=== PATIENT | female | born 1995 | race Caucasian/White ===

== ENCOUNTER 2023-05-24 07:03 | Emergency (ER) | payer OTHER ==
[2023-05-24] MEDS ORDERED: ACETAMINOPHEN TAB 325 MG TAB PO STA (07:32)
[2023-05-24] MEDS ORDERED: IBUPROFEN 600 MG TAB PO STA (07:32)
[2023-05-24 07:51] VITALS: BP 133/78; TEMP 103.1
--- NOTE | 2023-05-24 08:39 | XR ---
EXAMINATION TYPE: XR chest 2V DATE OF EXAM: 05/24/2023 COMPARISON: None HISTORY: 27-year-old female with fever, cough, congestion TECHNIQUE: PA and lateral views FINDINGS: The cardiomediastinal silhouette, aorta, and pulmonary vasculature are within normal limits. Slightly low lung volumes with crowded vascular markings. Otherwise, lungs and pleural spaces are clear. IMPRESSION: Some hypoventilatory changes. Otherwise, no acute cardiopulmonary process.
[2023-05-24 08:49] VITALS: RESP 20
--- NOTE | 2023-05-24 08:58 | ED ---
General Adult HPI - General Chief complaint: Fever Stated complaint: fever,SOB Time Seen by Provider: 05/24/23 07:32 Source: patient, RN notes reviewed Mode of arrival: ambulatory Limitations: no limitations - History of Present Illness Initial comments: 27-year-old female with medical history significant for asthma presents the emergency department with a chief complaint of fever. Patient reports fever that started last night at approximately 8 PM. She is also complaining of generalized body aches, headache and cough. She does not take any Tylenol or Motrin prior to arrival. She is unsure of any recent sick contacts. Denies nausea vomiting, chest pain palpitations abdominal pain. - Related Data Allergies Allergy/AdvReac Type Severity Reaction Status Date / Time amoxicillin Allergy Unknown Verified 05/24/23 07:26 Childhood morphine Allergy Swelling Verified 05/24/23 07:26 Penicillins Allergy Unknown Verified 05/24/23 07:26 Childhood Review of Systems ROS Statement: Those systems with pertinent positive or pertinent negative responses have been documented in the HPI. ROS Other: All systems not noted in ROS Statement are negative. Past Medical History Past Medical History: Asthma History of Any Multi-Drug Resistant Organisms: None Reported Past Surgical History: No Surgical Hx Reported Past Psychological History: No Psychological Hx Reported Smoking Status: Never smoker Past Alcohol Use History: None Reported Past Drug Use History: None Reported General Exam - General Exam Comments Initial Comments: General: Alert, in no acute distress Head: atraumatic normocephalic. Eyes PERRL, EOMI intact, mucous membranes moist Respiratory: Lungs clear to auscultation bilaterally Cardiovascular: tachycardic Abdominal: Soft without guarding or rebound Extremities: Normal inspection with full range of motion and normal capillary refill Neuroogic: alert and oriented 3, CN II-XII intact, able to ambulate with steady gait Skin: warm dry and intact with normal color Limitations: no limitations Course Vital Signs 05/24/23 05/24/23 05/24/23 07:25 07:43 08:39 Temperature 103.1 F H Pulse Rate 135 H Respiratory 18 18 20 Rate Blood Pressure 133/78 O2 Sat by Pulse 96 Oximetry 05/24/23 09:39 Temperature Pulse Rate 100 Respiratory 20 Rate Blood Pressure O2 Sat by Pulse Oximetry - Reevaluation(s) Reevaluation #1: 05/24/23 08:56 pt reevaluated and updated on results. Agreeable with the plan for discharge home Medical Decision Making - Medical Decision Making Was pt. sent in by a medical professional or institution (MICAELA Skelton, CONSTRUCTION SCHEDULER, urgent care, hospital, or penitentiary...) When possible be specific @ -[No] Did you speak to anyone other than the patient for history (EMS, parent, family, police, friend...)? What history was obtained from this source @ -[No] Did you review nursing and triage notes (agree or disagree)? Why? @ -[I reviewed and agree with nursing and triage notes] Were old charts reviewed (outside hosp., previous admission, EMS record, old EKG, old radiological studies, urgent care reports/EKG's, penitentiary records)? Report findings @ -[No old charts were reviewed] Differential Diagnosis (chest pain, altered mental status, abdominal pain women, abdominal pain men, vaginal bleeding, weakness, fever, dyspnea, syncope, headache, dizziness, GI bleed, back pain, seizure, CVA, palpatations, mental health, musculoskeletal)? @ -[not applicable] EKG interpreted by me (3pts min.). @ -[As above] X-rays interpreted by me (1pt min.). @ -X-ray does not reveal any focal consolidation or cardiomegaly CT interpreted by me (1pt min.). @ -[None done] U/S interpreted by me (1pt. min.). @ -[None done] What testing was considered but not performed or refused? (CT, X-rays, U/S, labs)? Why? @ -[None] What meds were considered but not given or refused? Why? @ -[None] Did you discuss the management of the patient with other professionals (professionals i.e. MICAELA Skelton, CONSTRUCTION SCHEDULER, lab, RT, psych nurse, social studies department chair, welder, teacher, senior officer, briefcase sewer)? Give summary @ -[No] Was smoking cessation discussed for >3mins.? @ -[No] Was critical care preformed (if so, how long)? @ -[No] Were there social determinants of health that impacted care today? How? (Homelessness, low income, unemployed, alcoholism, drug addiction, transportation, low edu. Level, literacy, decrease access to med. care, longterm, rehab)? @ -[No] Was there de-escalation of care discussed even if they declined (Discuss DNR or withdrawal of care, Hospice)? DNR status @ -[No] What co-morbidities impacted this encounter? (DM, HTN, Smoking, COPD, CAD, Cancer, CVA, ARF, Chemo, Hep., AIDS, mental health diagnosis, sleep apnea, morbid obesity)? @ -[None] Was patient admitted / discharged? Hospital course, mention meds given and route, prescriptions, significant lab abnormalities, going to OR and other pertinent info. @ Discharged. This is a pleasant 27-year-old female who presents the emergency department with fever. Patient is a physical exam performed. Patient initially febrile on exam, lungs are clear to auscultation in all robison. Patient had viral swabs which were negative. Chest x-ray does not reveal any focal consolidation. Patient was provided Tylenol and Motrin with symptomatic fever improvement. Patient be discharged home in stable condition. Return precautions discussed at length. Case is discussed with Dr. Ravi, ED attending who presented. Undiagnosed new problem with uncertain prognosis? @ -[No] Drug Therapy requiring intensive monitoring for toxicity (Heparin, Nitro, Insulin, Cardizem)? @ -[No] Were any procedures done? @ -[No] Diagnosis/symptom? @ -Fever Acute, or Chronic, or Acute on Chronic? @ -Acute Uncomplicated (without systemic symptoms) or Complicated (systemic symptoms)? @ -Complicated Side effects of treatment? @ -[No] Exacerbation, Progression, or Severe Exacerbation? @ -[No] Poses a threat to life or bodily function? How? (Chest pain, [place], [place], pneumonia, PE, COPD, DKA, ARF, appy, cholecystitis, CVA, Diverticulitis, Homicidal, Suicidal, threat to staff... and all critical care pts) @ -Low likelihood - Lab Data Lab Results 05/24/23 05/24/23 Range/Units 07:46 07:46 Influenza Type A (PCR) Not Detected (Not Detectd) Influenza Type B (PCR) Not Detected (Not Detectd) RSV (PCR) Not Detected (Not Detectd) SARS-CoV-2 (PCR) Not Detected (Not Detectd) Group A Strep (PCR) NOT DETECTED (Not Detectd) Disposition Clinical Impression: Fever Disposition: HOME SELF-CARE Condition: Stable Instructions (If sedation given, give patient instructions): Fever in Adults (ED), Upper Respiratory Infection (ED) Additional Instructions: Continue to take Tylenol and Motrin for fever control Please be sure to stay hydrated for the next 3-5 days Please return to the nearest emergency department if worsening symptoms, shortness breath or high fever maintain Is patient prescribed a controlled substance at d/c from ED?: No Referrals: None,Stated [Primary Care Provider] - 1-2 days Forms: Area PCPs Time of Disposition: 08:58
[2023-05-24 09:40] VITALS: PULSE 100
== END 2023-05-24 09:39 | disposition home or self-care (01) ==
LOC: EDBD → EC 07:03
DX: R50.9 Fever, unspecified (principal); J45.909 Unspecified asthma, uncomplicated; Z88.5 Allergy status to narcotic agent; Z88.0 Allergy status to penicillin; Z20.822 Contact with and (suspected) exposure to COVID-19
CPT/HCPCS: 71046; 87636; 87651; 99283

== ENCOUNTER 2023-05-26 21:10 | Emergency (ER) | payer OTHER ==
[2023-05-26 21:28] VITALS: RESP 20; TEMP 98.1
--- NOTE | 2023-05-26 22:18 | XR ---
EXAMINATION TYPE: XR chest 2V DATE OF EXAM: 05/26/2023 COMPARISON: 05/24/2023 HISTORY: 27-year-old female fever and congestion, cough, rule out pneumonia TECHNIQUE: PA and lateral views FINDINGS: Heart normal size. Aorta and pulmonary vasculature within normal limits. Streaky perihilar and mild i nterstitial density especially mid and lower lungs. No consolidation or pleural effusion. IMPRESSION: Correlate for bronchitis or atypical/COVID pneumonia.
[2023-05-26] MEDS ORDERED: methylPREDNISolone SOD SUCCI 125 MG/2 ML VIAL IM ONE (23:10)
[2023-05-26] MEDS ORDERED: IPRATROPIUM-ALBUTEROL 3 ML NEB INHALATION STA (23:10)
--- NOTE | 2023-05-26 23:26 | ED ---
Fever HPI - General Chief Complaint: Fever Stated Complaint: Fever, congestion Time Seen by Provider: 05/26/23 21:34 Source: patient Mode of arrival: ambulatory Limitations: no limitations - History of Present Illness Initial Comments: 27-year-old female presenting to the ED with complaints of cough, congestion, fever. Reports as previously seen here 2 days ago and had negative testing for COVID, flu, RSV. Chest x-ray that was also unremarkable at that time. Given prescriptions for Tylenol. Advised supportive care. Despite taking Motrin and Tylenol, patient reports continued fevers. Also notes continued symptoms of cough and congestion. Additionally patient states that she now starts to feel like she started to get short of breath with this. She does not have a nebulizer and inhaler at home. Patient reports that she is only been taking 200 mg of Motrin at a time to help control her fever. No chest pain. No other complaints. - Related Data Allergies Allergy/AdvReac Type Severity Reaction Status Date / Time amoxicillin Allergy Unknown Verified 05/26/23 21:21 Childhood morphine Allergy Swelling Verified 05/26/23 21:21 Penicillins Allergy Unknown Verified 05/26/23 21:21 Childhood Review of Systems ROS Statement: Those systems with pertinent positive or pertinent negative responses have been documented in the HPI. ROS Other: All systems not noted in ROS Statement are negative. Past Medical History Past Medical History: Asthma History of Any Multi-Drug Resistant Organisms: None Reported Past Surgical History: No Surgical Hx Reported Past Psychological History: No Psychological Hx Reported Smoking Status: Never smoker Past Alcohol Use History: None Reported Past Drug Use History: None Reported General Exam Limitations: no limitations General appearance: alert Neck exam: Present: normal inspection Respiratory exam: Present: wheezes (Minmal Wheezing bilaterally.) Cardiovascular Exam: Present: regular rate GI/Abdominal exam: Present: soft Neurological exam: Present: alert, oriented X3 Course Vital Signs 05/26/23 21:19 Temperature 98.1 F Pulse Rate 107 H Respiratory 20 Rate Blood Pressure 134/88 O2 Sat by Pulse 96 Oximetry Medical Decision Making - Medical Decision Making Was pt. sent in by a medical professional or institution (MICAELA Skelton, HEADER SET UP OPERATOR, urgent care, hospital, or residential...) When possible be specific @ -No Did you speak to anyone other than the patient for history (EMS, parent, family, police, friend...)? What history was obtained from this source @ -No Did you review nursing and triage notes (agree or disagree)? Why? @ -I reviewed and agree with nursing and triage notes Were old charts reviewed (outside hosp., previous admission, EMS record, old EKG, old radiological studies, urgent care reports/EKG's, residential records)? Report findings @ -No old charts were reviewed Differential Diagnosis (chest pain, altered mental status, abdominal pain women, abdominal pain men, vaginal bleeding, weakness, fever, dyspnea, syncope, headache, dizziness, GI bleed, back pain, seizure, CVA, palpatations, mental health, musculoskeletal)? @ -Differential Fever: Pneumonia, viral URI, endocarditis, myocarditis, pericarditis, otitis, sinusitis, peritonsillar Abscess, retropharyngeal Abscess, epiglottitis, peritonitis, appendicitis, Suni cystitis, diverticulitis, hepatitis, colitis, UTI, PID, TOA, pyelonephritis, prostatitis, epididymitis, meningitis, encephalitis, pulmonary embolism, CVA, thyroid storm, pancreatitis, adrenal crisis, cavernous sinus thrombosis, this is not meant to be an all-inclusive list. EKG interpreted by me (3pts min.). @ -As above X-rays interpreted by me (1pt min.). @ -Chest x-ray interpreted by me showing no evidence of focal pneumonia. CT interpreted by me (1pt min.). @ -None done U/S interpreted by me (1pt. min.). @ -None done What testing was considered but not performed or refused? (CT, X-rays, U/S, labs)? Why? @ -None What meds were considered but not given or refused? Why? @ -None Did you discuss the management of the patient with other professionals (professionals i.e. , PA, HEADER SET UP OPERATOR, lab, RT, psych nurse, socially responsible investment adviser, bank and savings securities trader, teacher, chief strategy officer, field nurse case manager)? Give summary @ -No Was smoking cessation discussed for >3mins.? @ -No Was critical care preformed (if so, how long)? @ -No Were there social determinants of health that impacted care today? How? (Homelessness, low income, unemployed, alcoholism, drug addiction, transportation, low edu. Level, literacy, decrease access to med. care, detention, rehab)? @ -No Was there de-escalation of care discussed even if they declined (Discuss DNR or withdrawal of care, Hospice)? DNR status @ -No What co-morbidities impacted this encounter? (DM, HTN, Smoking, COPD, CAD, Cancer, CVA, ARF, Chemo, Hep., AIDS, mental health diagnosis, sleep apnea, morbid obesity)? @ -Asthma Was patient admitted / discharged? Hospital course, mention meds given and route, prescriptions, significant lab abnormalities, going to OR and other pertinent info. @ -Discharged 27-year-old female presenting to the ED with CT complaints of congestion, cough, fever. Patient reported that she only took 200 mg of Motrin at a time to help control her fever. Patient advised on proper dosing for ibuprofen and Tylenol. Serology testing here shows patient influenza A positive. Chest x-ray shows no evidence of focal pneumonia. Patient reassured. With history of asthma patient provided steroids, breathing treatment, and a inhaler for home. Patient reported significant improvement of symptoms with the breathing treatment. Discharged home in stable condition. Discussed return precautions with patient who verbalizes agreement. Undiagnosed new problem with uncertain prognosis? @ -No Drug Therapy requiring intensive monitoring for toxicity (Heparin, Nitro, Insulin, Cardizem)? @ -No Were any procedures done? @ -No Diagnosis/symptom? @ -Influenza Acute, or Chronic, or Acute on Chronic? @ -Acute Uncomplicated (without systemic symptoms) or Complicated (systemic symptoms)? @ -Uncomplicated Side effects of treatment? @ -No Exacerbation, Progression, or Severe Exacerbation? @ -No Poses a threat to life or bodily function? How? (Chest pain, [place], [place], pneumonia, PE, COPD, DKA, ARF, appy, cholecystitis, CVA, Diverticulitis, Homicidal, Suicidal, threat to staff... and all critical care pts) @ -No - Lab Data Lab Results 05/26/23 Range/Units 21:41 Influenza Type A (PCR) Detected A (Not Detectd) Influenza Type B (PCR) Not Detected (Not Detectd) RSV (PCR) Not Detected (Not Detectd) SARS-CoV-2 (PCR) Not Detected (Not Detectd) Disposition Clinical Impression: Influenza Disposition: HOME SELF-CARE Condition: Good Instructions (If sedation given, give patient instructions): Influenza (ED) Is patient prescribed a controlled substance at d/c from ED?: No Referrals: None,Stated [Primary Care Provider] - 1-2 days Time of Disposition: 23:31
[2023-05-26] MEDS ORDERED: ALBUTEROL HFA INHALER INHALATION STA ×2 (23:32→23:39)
[2023-05-26 23:47] VITALS: BP 118/83; PULSE 110
== END 2023-05-26 23:47 | disposition home or self-care (01) ==
LOC: EC 21:10
DX: J10.1 Influenza due to other identified influenza virus with other respiratory manifestations (principal); J45.909 Unspecified asthma, uncomplicated; Z20.822 Contact with and (suspected) exposure to COVID-19; Z88.0 Allergy status to penicillin; Z88.5 Allergy status to narcotic agent
CPT/HCPCS: 94640; 87636; 71046; 99283; 96372; J2930

== ENCOUNTER 2024-03-21 10:40 | Emergency (ER) | payer OTHER ==
[2024-03-21 10:49] VITALS: TEMP 98.6
--- NOTE | 2024-03-21 11:31 | ED ---
General Adult HPI - General Chief complaint: Recheck/Abnormal Lab/Rx Stated complaint: L ankle injury Time Seen by Provider: 03/21/24 11:30 Source: patient, RN notes reviewed Mode of arrival: ambulatory Limitations: no limitations - History of Present Illness Initial comments: 28-year-old female presenting the ER with a chief complaint of left ankle pain. Patient states yesterday she tripped over her dog causing her to fall down 7 stairs. She was evaluated at [facility] and diagnosed with a fibular fracture and ankle dislocation. Patient underwent reduction and splint at that time. Patient was discharged with a prescription for [place] and ibuprofen and to follow-up with podiatry. Patient states due to insurance issues she has been unable to receive medications or referral to specialist. Patient denies any paresthesias or other injuries. No other complaints. - Related Data Previous Rx's Medication Instructions Recorded HYDROcodone/APAP 5-325MG [[place] 5] 1 each PO Q6HR PRN #12 tab 03/21/24 Ibuprofen [Motrin] 600 mg PO Q8HR PRN #30 tab 03/21/24 Allergies Allergy/AdvReac Type Severity Reaction Status Date / Time amoxicillin Allergy Unknown Verified 03/21/24 10:49 Childhood morphine Allergy Swelling Verified 03/21/24 10:49 Penicillins Allergy Unknown Verified 03/21/24 10:49 Childhood Review of Systems ROS Statement: Those systems with pertinent positive or pertinent negative responses have been documented in the HPI. ROS Other: All systems not noted in ROS Statement are negative. Past Medical History Past Medical History: Asthma History of Any Multi-Drug Resistant Organisms: None Reported Past Surgical History: No Surgical Hx Reported Past Psychological History: No Psychological Hx Reported Smoking Status: Never smoker Past Alcohol Use History: None Reported Past Drug Use History: None Reported General Exam Limitations: no limitations General appearance: alert, in no apparent distress Respiratory exam: Present: normal lung sounds bilaterally. Absent: respiratory distress, wheezes, rales, rhonchi, stridor Cardiovascular Exam: Present: regular rate, normal rhythm, normal heart sounds. Absent: systolic murmur, diastolic murmur, rubs, gallop, clicks Extremities exam: Present: tenderness (Edema to left medial malleolus with overlying contusion. 2+ PT and DP pulse. limtied rom due to pain) Neurological exam: Present: alert, oriented X3, CN II-XII intact Skin exam: Present: warm, dry, intact, normal color. Absent: rash Course Vital Signs 03/21/24 03/21/24 10:45 13:54 Temperature 98.6 F Pulse Rate 93 84 Respiratory 20 18 Rate Blood Pressure 140/96 124/78 O2 Sat by Pulse 98 98 Oximetry Medical Decision Making - Medical Decision Making Was pt. sent in by a medical professional or institution (, PA, H[employer] CREW MEMBER, urgent care, hospital, or penitentiary...) When possible be specific @ -No Did you speak to anyone other than the patient for history (EMS, parent, family, police, friend...)? What history was obtained from this source @ -No Did you review nursing and triage notes (agree or disagree)? Why? @ -I reviewed and agree with nursing and triage notes Were old charts reviewed (outside hosp., previous admission, EMS record, old EKG, old radiological studies, urgent care reports/EKG's, penitentiary records)? Report findings @ -No old charts were reviewed Differential Diagnosis (chest pain, altered mental status, abdominal pain women, abdominal pain men, vaginal bleeding, weakness, fever, dyspnea, syncope, he adache, dizziness, GI bleed, back pain, seizure, CVA, palpatations, mental health, musculoskeletal)? @ -Differential Musculoskeletal: Muscular strain, contusion, ligament sprain, fracture, arthritis, septic arthritis, bursitis, cellulitis, muscle spasm, nerve compression, DVT, arterial occlusion, herpes zoster, electrolyte abnormality, tumor.... This is not meant to be in all inclusive list EKG interpreted by me (3pts min.). @ -None done X-rays interpreted by me (1pt min.). @ -None done CT interpreted by me (1pt min.). @ -None done U/S interpreted by me (1pt. min.). @ -None done What testing was considered but not performed or refused? (CT, X-rays, U/S, labs)? Why? @ -X-rays considered but as patient had x-rays obtained yesterday and denies any new traumas x-rays were deferred. Patient is agreeable to this. What meds were considered but not given or refused? Why? @ -None Did you discuss the management of the patient with other professionals (professionals i.e. , PA, [employer] MEMBER, lab, RT, psych nurse, social worker aide, heat treat operator, teacher, chairman & chief executive officer, machine adjuster leader case trim)? Give summary @ -No Was smoking cessation discussed for >3mins.? @ -No Was critical care preformed (if so, how long)? @ -No Were there social determinants of health that impacted care today? How? (Homelessness, low income, unemployed, alcoholism, drug addiction, transportation, low edu. Level, literacy, decrease access to med. care, custodial, rehab)? @ -No Was there de-escalation of care discussed even if they declined (Discuss DNR or withdrawal of care, Hospice)? DNR status @ -No What co-morbidities impacted this encounter? (DM, HTN, Smoking, COPD, CAD, Cancer, CVA, ARF, Chemo, Hep., AIDS, mental health diagnosis, sleep apnea, morbid obesity)? @ -None Was patient admitted / discharged? Hospital course, mention meds given and route, prescriptions, significant lab abnormalities, going to OR and other pertinent info. @ -Discharge. 28-year-old female presented to the ER with a chief complaint of left ankle injury. Patient was seen at [facility] yesterday and diagnosed with an ankle dislocation and fibular fracture. Patient was placed in a splint. Patient was not sent home with crutches and states he has been unable to fill pain medication due to pharmacy not having medication. Vitals within normal limits. Exam remarkable for tenderness to medial malleolus with overlying contusion. Splint removed showing no skin irritation or wounds. Splint was replaced prior to discharge. Records from [facility] were attempted to be obtained but never were received, patient would like to be discharged and no longer wait for records. As patient had x-rays obtained yesterday and with no new traumas, new xrays deferred. Patient is agreeable to this. She states she is only here for pain medication, referral and crutches. MAPS was reviewed and patient did not fill prescription for [place]. Crutches given. [place] and ibuprofen prescribed. Referrals given for podiatry and orthopedics. Strict return parameters discussed. Patient discharged in stable condition with follow-up to orthopedics. Patient verbally expressed understanding and agreement with care plan. Case discussed with ED attending, Dr. Hitchcock. Undiagnosed new problem with uncertain prognosis? @ -No Drug Therapy requiring intensive monitoring for toxicity (Heparin, Nitro, In sulin, Cardizem)? @ -No Were any procedures done? @ -No Diagnosis/symptom? @ -Fibula fracture/ankle injury Acute, or Chronic, or Acute on Chronic? @ -Acute Uncomplicated (without systemic symptoms) or Complicated (systemic symptoms)? @ -Uncomplicated Side effects of treatment? @ -No Exacerbation, Progression, or Severe Exacerbation? @ -No Poses a threat to life or bodily function? How? (Chest pain, [place], [place], pneumonia, PE, COPD, DKA, ARF, appy, cholecystitis, CVA, Diverticulitis, Homicidal, Suicidal, threat to staff... and all critical care pts) @ -No Disposition Clinical Impression: Fibula fracture, Ankle injury Disposition: HOME SELF-CARE Condition: Stable Instructions (If sedation given, give patient instructions): Ankle Fracture (ED) Additional Instructions: Remain nonweightbearing. Follow-up with orthopedics. Return to the ER for any new or worsening concerns. Prescriptions: Ibuprofen [Motrin] 600 mg PO Q8HR PRN #30 tab PRN Reason: Pain HYDROcodone/APAP 5-325MG [[place] 5] 1 each PO Q6HR PRN #12 tab PRN Reason: Pain Is patient prescribed a controlled substance at d/c from ED?: Yes When asked, does pt state using other controlled substances?: No If prescribed controlled substance>3 days was MAPS reviewed?: Prescribed <3 Days If opioid is for acute pain is fill amount 7 days or less?: Yes If Rx opioid, was Start Talking consent form obtained?: Yes Referrals: None,Stated [Primary Care Provider] - 1-2 days Hernandez Jain MD [Medical Doctor] - 1-2 days Ashley Ramos DPM [STAFF PHYSICIAN] - 1-2 days Time of Disposition: 13:41
[2024-03-21] MEDS: HYDROcodone/APAP 5-325MG 1 EACH TAB PO STA (12:01)
[2024-03-21 13:55] VITALS: BP 124/78; PULSE 84; RESP 18
== END 2024-03-21 13:55 | disposition home or self-care (01) ==
LOC: EC 10:40
CPT/HCPCS: 99283

== ENCOUNTER 2024-04-12 18:58 | Emergency (ER) | payer OTHER ==
[2024-04-12 19:33] VITALS: RESP 18; TEMP 97.5
--- NOTE | 2024-04-12 20:16 | ED ---
General Adult HPI - General Source: patient, RN notes reviewed Mode of arrival: wheelchair Limitations: physical limitation (LLE cast) - History of Present Illness Onset/Timin -: days(s) <TravisUriel - Last Filed: 04/12/24 20:13> - General Source: RN notes reviewed <Candie Galindo - Last Filed: 04/13/24 01:03> - General Chief complaint: Recheck/Abnormal Lab/Rx Stated complaint: L side numbness Time Seen by Provider: 04/12/24 19:14 - History of Present Illness Initial comments: Quick note: This is a 28-year-old female presenting with left side numbness/tingling x 2 days. Patient states she received surgery for a left fibular dislocation on April 08 before experiencing her current symptoms yesterday morning. Patient states symptoms are constant with associated left axillary pain. Patient endorses some weakness in her left upper extremity and has not been ambulating since the surgery. Patient endorses associated shortness of breath and nausea. Patient denies use of blood thinners since surgery. (Uriel Robles) 28-year-old female presenting to the ER with left arm numbness/tingling since yesterday. Patient underwent surgery for left fibular dislocation 4 days ago. Yesterday morning, she began to experience a tingling sensation in her left armpit that radiates down to her left hand. Also reports she is having some tenderness and weakness in her left shoulder. She does endorse associated shortness of breath. Denies chest pain, lower extremity numbness/tingling, slurred speech, lightheadedness. Denies blood thinners. Denies history of blood clots. States she has been using her arms more frequently to get around the household after the surgery, and believes she may have strained her shoulder. States she called her surgeon who told her to come to the ER to rule out a blood clot. (Candie Galindo) - Related Data Previous Rx's Medication Instructions Recorded HYDROcodone/APAP 5-325MG [[place] 5] 1 each PO Q6HR PRN #12 tab 03/21/24 Ibuprofen [Motrin] 600 mg PO Q8HR PRN #30 tab 03/21/24 Allergies Allergy/AdvReac Type Severity Reaction Status Date / Time amoxicillin Allergy Unknown Verified 04/12/24 19:33 Childhood morphine Allergy Swelling Verified 04/12/24 19:33 Penicillins Allergy Unknown Verified 04/12/24 19:33 Childhood Review of Systems ROS Other: All systems not noted in ROS Statement are negative. <Uriel Robles - Last Filed: 04/12/24 20:13> ROS Other: All systems not noted in ROS Statement are negative. <Candie Galindo - Last Filed: 04/13/24 01:03> ROS Statement: Those systems with pertinent positive or pertinent negative responses have been documented in the HPI. Past Medical History Past Medical History: Asthma History of Any Multi-Drug Resistant Organisms: None Reported Past Surgical History: No Surgical Hx Reported Past Psychological History: No Psychological Hx Reported Smoking Status: Never smoker Past Alcohol Use History: None Reported Past Drug Use History: None Reported <Uriel Robles - Last Filed: 04/12/24 20:13> General Exam <Uriel Robles - Last Filed: 04/12/24 20:13> General appearance: alert, in no apparent distress Head exam: Present: atraumatic, normocephalic, normal inspection Eye exam: Present: normal appearance, PERRL, EOMI. Absent: scleral icterus, conjunctival injection, periorbital swelling Respiratory exam: Present: normal lung sounds bilaterally. Absent: respiratory distress, wheezes, rales, rhonchi, stridor Cardiovascular Exam: Present: regular rate, normal rhythm, normal heart sounds. Absent: systolic murmur, diastolic murmur, rubs, gallop, clicks Left Shoulder Exam: Present: normal inspection, full ROM, tenderness (Reproducible tenderness along anterior/posterior aspect of left shoulder). Absent: swelling, abrasion, deformity, erythema Upper Arm exam: Present: normal inspection, full ROM. Absent: tenderness, swelling, erythema Elbow exam: Present: normal inspection, full ROM. Absent: tenderness, swelling, erythema Forearm Wrist exam: Present: normal inspection, full ROM. Absent: tenderness, swelling, erythema Hand Wrist exam: Present: normal inspection, full ROM. Absent: tenderness, swelling, erythema Vascular: Present: normal capillary refill, radial pulse. Absent: vascular compromise Neurological exam: Present: alert, oriented X3, CN II-XII intact Psychiatric exam: Present: normal affect, normal mood Skin exam: Present: warm, dry, intact, normal color. Absent: rash <Candie Galindo - Last Filed: 04/13/24 01:03> - General Exam Comments Initial Comments: Visual Physical Exam Vital signs reviewed General: Well-appearing, nontoxic, no acute distress. Head: Normocephalic, atraumatic Eyes: PERRLA, EOMI ENT: Airway patent Chest: Nonlabored breathing Skin: No visual rash, normal skin tone Neuro: Alert and oriented 3. Badger stroke scale negative. Musculoskeletal: No gross abnormalities. LLE cast to knee noted. Left viscosity worker strength 4 out of 5. (Uriel Robles) Course Vital Signs 04/12/24 04/13/24 19:28 00:00 Temperature 97.5 F L Pulse Rate 91 85 Respiratory 18 18 Rate Blood Pressure 126/88 137/92 O2 Sat by Pulse 97 98 Oximetry EKG Findings - EKG Results: EKG: interpreted by ERMD (EKG reveals sinus tachycardia with no ST changes. Ventricular rate 103 bpm, MT interval 141, QRS duration 98, QT/QTc 327/387) <Candie Galindo - Last Filed: 04/13/24 01:03> Medical Decision Making <Uriel Robles - Last Filed: 04/12/24 20:13> - Lab Data Result diagrams: 04/12/24 21:05 04/12/24 21:05 <MateoCandie - Last Filed: 04/13/24 01:03> - Medical Decision Making I completed the quick note portion of this chart signed DEXTER Huston (Uriel Robles) Was pt. sent in by a medical professional or institution (MICAELA Skelton, CLINICAL CYTOGENETICIST SCIENTIST, urgent care, hospital, or [facility]...) When possible be specific @ -No Did you speak to anyone other than the patient for history (EMS, parent, family, police, friend...)? What history was obtained from this source @ -No Did you review nursing and triage notes (agree or disagree)? Why? @ -I reviewed and agree with nursing and triage notes Were old charts reviewed (outside hosp., previous admission, EMS record, old EKG, old radiological studies, urgent care reports/EKG's, [facility] records)? Report findings @ -No old charts were reviewed Differential Diagnosis (chest pain, altered mental status, abdominal pain women, abdominal pain men, vaginal bleeding, weakness, fever, dyspnea, syncope, heada danny, dizziness, GI bleed, back pain, seizure, CVA, palpatations, mental health, musculoskeletal)? @ -Differential Musculoskeletal PE, ACS, muscular strain, contusion, ligament sprain, fracture, arthritis, septic arthritis, bursitis, cellulitis, muscle spasm, nerve compression, DVT, arterial occlusion, herpes zoster, electrolyte abnormality, tumor.... This is not meant to be in all inclusive list EKG interpreted by me (3pts min.). @ -As above X-rays interpreted by me (1pt min.). @ -None done CT interpreted by me (1pt min.). @ -CT angio chest reveals hypoaeration, no central or peripheral pulmonary embolism U/S interpreted by me (1pt. min.). @ -None done What testing was considered but not performed or refused? (CT, X-rays, U/S, labs)? Why? @ -None What meds were considered but not given or refused? Why? @ -None Did you discuss the management of the patient with other professionals (ralph patterson i.e. , PA, CLINICAL CYTOGENETICIST SCIENTIST, lab, RT, psych nurse, psychiatric social worker, enterprise records analyst, teacher, front desk officer, egg caser)? Give summary @ -No Was smoking cessation discussed for >3mins.? @ -No Was critical care preformed (if so, how long)? @ -No Were there social determinants of health that impacted care today? How? (Homelessness, low income, unemployed, alcoholism, drug addiction, transportation, low edu. Level, literacy, decrease access to med. care, intermediate, rehab)? @ -No Was there de-escalation of care discussed even if they declined (Discuss DNR or withdrawal of care, Hospice)? DNR status @ -No What co-morbidities impacted this encounter? (DM, HTN, Smoking, COPD, CAD, Cancer, CVA, ARF, Chemo, Hep., AIDS, mental health diagnosis, sleep apnea, morbid obesity)? @ -None Was patient admitted / discharged? Hospital course, mention meds given and route, prescriptions, significant lab abnormalities, going to OR and other pertinent info. @ -Discharge. This is a 28-year-old female presenting for left arm numbness x 2 days. Recently underwent left leg surgery 4 days ago. Denies blood thinners. Denies chest pain. Left upper extremity neurovascularly intact, no erythema or tenderness along deep venous system. There is reproducible tenderness along left shoulder. Vital signs within acceptable limits. EKG reveals sinus tachycardia with no ST changes. D-dimer elevated at 1.19, therefore CT angio chest was taken which revealed hypoaeration, however no central or peripheral pulmonary embolism. Discussed negative results with patient. Discussed diagnosis of left shoulder strain. Advised to follow-up with PCP in 3 to 5 days for reevaluation. Return precautions discussed and patient is agreeable to plan. Case was discussed with my ED attending Dr. Gr. Patient discharged in stable condition. Undiagnosed new problem with uncertain prognosis? @ -No Drug Therapy requiring intensive monitoring for toxicity (Heparin, Nitro, Insulin, Cardizem)? @ -No Were any procedures done? @ -No Diagnosis/symptom? @ -Left shoulder strain Acute, or Chronic, or Acute on Chronic? @ -Acute Uncomplicated (without systemic symptoms) or Complicated (systemic symptoms)? @ -Uncomplicated Side effects of treatment? @ -No Exacerbation, Progression, or Severe Exacerbation? @ -No Poses a threat to life or bodily function? How? (Chest pain, USA, CA, pneumonia, PE, COPD, DKA, ARF, appy, cholecystitis, CVA, Diverticulitis, Homicidal, Suicidal, threat to staff... and all critical care pts) @ -No (Candie Galindo) - Lab Data Lab Results 04/12/24 04/12/24 04/12/24 Range/Units 21:05 21:05 21:05 WBC 11.7 H (3.8-10.6) k/uL RBC 4.60 (3.80-5.40) m/uL Hgb 12.9 (11.4-16.0) gm/dL Hct 39.3 (34.0-46.0) % MCV 85.5 (80.0-100.0) fL MCH 28.1 (25.0-35.0) pg MCHC 32.9 (31.0-37.0) g/dL RDW 13.1 (11.5-15.5) % Plt Count 516 H (150-450) k/uL MPV 6.7 Neutrophils % 67 % Lymphocytes % 25 % Monocytes % 4 % Eosinophils % 2 % Basophils % 0 % Neutrophils # 7.8 H (1.3-7.7) k/uL Lymphocytes # 2.9 (1.0-4.8) k/uL Monocytes # 0.5 (0-1.0) k/uL Eosinophils # 0.3 (0-0.7) k/uL Basophils # 0.0 (0-0.2) k/uL PT 10.3 (10.0-12.5) sec INR 0.9 (<1.2) APTT 26.9 (22.0-30.0) sec D-Dimer (<0.60) mg/L FEU Sodium 137 (137-145) mmol/L Potassium 4.1 (3.5-5.1) mmol/L Chloride 105 (98-107) mmol/L Carbon Dioxide 26 (22-30) mmol/L Anion Gap 6 mmol/L BUN 17 (7-17) mg/dL Creatinine 0.88 (0.52-1.04) mg/dL Est GFR (CKD-EPI)AfAm >90 (>60 ml/min/1.73 sqM) Est GFR (CKD-EPI)NonAf 89 (>60 ml/min/1.73 sqM) Glucose 117 H (74-99) mg/dL Plasma Lactic Acid Fito (0.7-2.0) mmol/L Calcium 9.9 (8.4-10.2) mg/dL Total Bilirubin 0.6 (0.2-1.3) mg/dL AST 37 H (14-36) U/L ALT 42 H (4-34) U/L Alkaline Phosphatase 125 (38-126) U/L Troponin I (0.000-0.034) ng/mL Total Protein 7.4 (6.3-8.2) g/dL Albumin 4.3 (3.5-5.0) g/dL 04/12/24 04/12/24 04/12/24 Range/Units 21:05 21:05 22:00 WBC (3.8-10.6) k/uL RBC (3.80-5.40) m/uL Hgb (11.4-16.0) gm/dL Hct (34.0-46.0) % MCV (80.0-100.0) fL MCH (25.0-35.0) pg MCHC (31.0-37.0) g/dL RDW (11.5-15.5) % Plt Count (150-450) k/uL MPV Neutrophils % % Lymphocytes % % Monocytes % % Eosinophils % % Basophils % % Neutrophils # (1.3-7.7) k/uL Lymphocytes # (1.0-4.8) k/uL Monocytes # (0-1.0) k/uL Eosinophils # (0-0.7) k/uL Basophils # (0-0.2) k/uL PT (10.0-12.5) sec INR (<1.2) APTT (22.0-30.0) sec D-Dimer 1.19 H (<0.60) mg/L FEU Sodium (137-145) mmol/L Potassium (3.5-5.1) mmol/L Chloride (98-107) mmol/L Carbon Dioxide (22-30) mmol/L Anion Gap mmol/L BUN (7-17) mg/dL Creatinine (0.52-1.04) mg/dL Est GFR (CKD-EPI)AfAm (>60 ml/min/1.73 sqM) Est GFR (CKD-EPI)NonAf (>60 ml/min/1.73 sqM) Glucose (74-99) mg/dL Plasma Lactic Acid Fito 0.7 (0.7-2.0) mmol/L Calcium (8.4-10.2) mg/dL Total Bilirubin (0.2-1.3) mg/dL AST (14-36) U/L ALT (4-34) U/L Alkaline Phosphatase (38-126) U/L Troponin I <0.012 (0.000-0.034) ng/mL Total Protein (6.3-8.2) g/dL Albumin (3.5-5.0) g/dL Disposition <Uriel Robles - Last Filed: 04/12/24 20:13> Is patient prescribed a controlled substance at d/c from ED?: No Time of Disposition: 00:52 <Candie Galindo - Last Filed: 04/13/24 01:03> Clinical Impression: Left shoulder strain Disposition: HOME SELF-CARE Condition: Stable Instructions (If sedation given, give patient instructions): Muscle Strain (ED) Additional Instructions: Please return to the Emergency Department if symptoms worsen or any other concerns. Referrals: Mireya Mckeon MD [Primary Care Provider] - 1-2 days
--- NOTE | 2024-04-12 20:31 | XR ---
EXAMINATION TYPE: XR chest 2V DATE OF EXAM: 04/12/2024 8:27 PM COMPARISON: Previous chest radiograph 05/26/2023. CLINICAL INDICATION: Female, 28 years old with history of Left chest pain; [facility] TECHNIQUE: XR chest 2V Frontal and lateral views of the chest. FINDINGS: Heart size is within normal limits. No acute focal consolidation. No pleural effusion or pneumothorax. No acute osseous abnormality. IMPRESSION: No acute abnormality in the chest. [facility], , 04/12/2024 8:29 PM
[2024-04-12 21:25] LABS: Basophils % (A) 0 %; Eosinophils # (A) 0.3 k/uL (0-0.7); Eosinophils % (A) 2 %; HCT 39.3 % (34.0-46.0); HGB 12.9 gm/dL (11.4-16.0); Lymphocytes # (A) 2.9 k/uL (1.0-4.8); Lymphocytes % (A) 25 %; MCH 28.1 pg (25.0-35.0); MCHC 32.9 g/dL (31.0-37.0); MCV 85.5 fL (80.0-100.0); Mean Platelet Volume 6.7; Monocytes # (A) 0.5 k/uL (0-1.0); Monocytes % (A) 4 %; Neutrophils # (A) 7.8 k/uL (1.3-7.7); Neutrophils % (A) 67 %; Platelet Count 516 k/uL (150-450); RDW 13.1 % (11.5-15.5); WBC 11.7 k/uL (3.8-10.6)
[2024-04-12 21:30] LABS: ALT 42 U/L (4-34); AST 37 U/L (14-36); African American GFR (CKD) >90 (>60 ml/min/1.73 sqM); Albumin 4.3 g/dL (3.5-5.0); Alkaline Phosphatase 125 U/L (38-126); Anion Gap 6 mmol/L; Blood Urea Nitrogen 17 mg/dL (7-17); Calcium 9.9 mg/dL (8.4-10.2); Carbon Dioxide 26 mmol/L (22-30); Chloride 105 mmol/L (98-107); Glucose 117 mg/dL (74-99); Non-African American GFR(CKD) 89 (>60 ml/min/1.73 sqM); Potassium 4.1 mmol/L (3.5-5.1); Sodium 137 mmol/L (137-145); Total Bilirubin 0.6 mg/dL (0.2-1.3); Total Protein 7.4 g/dL (6.3-8.2)
[2024-04-12 21:34] LABS: INR 0.9 (<1.2); Partial Thromboplastin Time 26.9 sec (22.0-30.0); Prothrombin Time 10.3 sec (10.0-12.5)
[2024-04-13 00:01] VITALS: BP 137/92; PULSE 85
--- NOTE | 2024-04-13 00:43 | CT ---
EXAM: CT Angiography Chest With Intravenous Contrast CLINICAL HISTORY: ITS.REASON CT Reason: left arm tingling s/p surgery, elevated D-dimer TECHNIQUE: Axial computed tomographic angiography images of the chest with intravenous contrast. CTDI is 15.9 mGy and DLP is 559.3 mGy-cm. This CT exam was performed using one or more of the following dose reduction techniques: automated exposure control, adjustment of the mA and/or kV according to patient size, and/or use of iterative reconstruction technique. MIP reconstructed images were created and reviewed. COMPARISON: Chest x-ray of 04/12/2024. FINDINGS: Pulmonary arteries: Peripheral branches the pulmonary arteries are unremarkable. Aorta: Thoracic aorta and central pulmonary arteries are unremarkable. No thoracic aortic aneurysm. Lungs: Airway is normal. Minimal presumed scarring and subsegmental atelectasis noted at the mid lower lung zones. No mass. Pleural space: Unremarkable. No significant effusion. No pneumothorax. Heart: Heart is top normal in size. No cardiomegaly. No significant pericardial effusion. No evidence of RV dysfunction. Thyroid: Thyroid gland is unremarkable. Bones/joints: No acute fracture. No dislocation. Soft tissues: Unremarkable. Lymph nodes: Unremarkable. No enlarged lymph nodes. Liver: Fatty liver. Other findings: Mild hypoaeration. IMPRESSION: 1. Hypoaeration. 2. No central or peripheral pulmonary emboli.
== END 2024-04-13 00:50 | disposition home or self-care (01) ==
LOC: EC 18:58
DX: S46.912A Strain of unspecified muscle, fascia and tendon at shoulder and upper arm level, left arm, initial encounter (principal); R00.0 Tachycardia, unspecified; Z88.0 Allergy status to penicillin; Z88.5 Allergy status to narcotic agent; X58.XXXA Exposure to other specified factors, initial encounter
CPT/HCPCS: 36415; 93005; 85379; 80053; 83605; 84484; 85025; 85610; 85730; 71046; 71275; 99284; Q9967

== ENCOUNTER 2024-09-30 19:48 | Emergency (ER) | payer MEDICARE, OTHER ==
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
--- NOTE | 2024-09-30 20:33 | XR ---
EXAMINATION TYPE: XR lumbar spine 2 or 3V DATE OF EXAM: 09/30/2024 CLINICAL HISTORY: pain TECHNIQUE: Three views of the lumbar spine are submitted. COMPARISON: None. FINDINGS: There are 5 lumbar type vertebral bodies identified. The lumbar spine shows satisfactory alignment w ithout evidence of acute fracture or dislocation. Vertebral body heights are within normal limits. Disc space narrowing with endplate sclerosis at L5-S1. The overlying soft tissue appears unremarkabl e. IMPRESSION: 1. No acute fracture or dislocation is seen in the lumbar spine. 2. Minimal degenerative disc disease at L5-S1. [facility], , 09/30/2024 8:31 PM
[2024-09-30] MEDS: KETOROLAC 15 MG/ML 1 ML VIAL IM STA (20:43)
[2024-09-30] MEDS: ORPHENADRINE 30 MG/ML 2 ML VIAL IM STA (20:44)
[2024-09-30] MEDS: LIDOCAINE 4% PATCH TOPICAL ONE (20:46)
[2024-09-30 21:40] VITALS: BP 155/92; PULSE 83; RESP 16; TEMP 98
== END 2024-09-30 21:40 | disposition home or self-care (01) ==
LOC: EC 19:48
DX: S39.012A Strain of muscle, fascia and tendon of lower back, initial encounter (principal); J30.9 Allergic rhinitis, unspecified; Z88.0 Allergy status to penicillin; Z88.5 Allergy status to narcotic agent; V89.2XXA Person injured in unspecified motor-vehicle accident, traffic, initial encounter; Y92.410 Unspecified street and highway as the place of occurrence of the external cause
CPT/HCPCS: 72100; 99283; 96372 ×2; J2360; J1885

== ENCOUNTER → 2024-11-19 | Outpatient (CLI) | payer MEDICARE ==
--- NOTE | 2024-11-19 08:15 | US ---
EXAMINATION TYPE: US abdomen complete DATE OF EXAM: 11/19/2024 COMPARISON: NONE CLINICAL INDICATION: Female, 29 years old with history of R10.9 PERSONAL HISTORY OF ENDO, NUTRITIONAL AND ME; TECHNIQUE: Grayscale and color Doppler imaging of the abdomen was performed. FINDINGS: EXAM MEASUREMENTS: Liver Length: 17.0 cm Gallbladder Wall: 0.2 cm CBD: 0.4 cm Spleen: 12.6 cm Right Kidney: 10.3 x 5.1 x 5.1 cm Left Kidney: 11.8 x 6.1 x 4.9 cm Difficult and limited study due to patient body habitus Pancreas: visualized portions wnl, limited by overlying midline bowel gas Liver: mildly heterogeneous Gallbladder: wnl Evidence for sonographic Calvo's sign: no CBD: visualized portions wnl, limited by overlying bowel gas Spleen: wnl Right Kidney: wnl Left Kidney: wnl Upper IVC: wnl Abd Aorta: proximal portion obscured by overlying midline bowel gas, visualized portions of mid and distal appear wnl IMPRESSION: 1. Mild hepatomegaly with mild fatty infiltration. [facility], , 11/19/2024 8:12 AM
--- NOTE | 2024-11-19 08:20 | US ---
EXAMINATION TYPE: US pelvic complete DATE OF EXAM: 11/19/2024 COMPARISON: NONE CLINICAL INDICATION: Female, 29 years old with history of R10.9 PERSONAL HISTORY OF ENDO, NUTRITIONAL AND ME; TECHNIQUE: Transvaginal (TV) and Transabdominal (TA) . FINDINGS: Date of LMP: 10/11/2024 EXAM MEASUREMENTS: Uterus: 7.5 x 3.6 x 4.3 cm Endometrial Stripe: 0.5 cm Right Ovary: 2.6 x 1.9 x 2.8 cm Left Ovary: 2.5 x 1.4 x 2.4 cm 1. Uterus: anteverted, heterogeneous 2. Endometrium: appears wnl 3. Right Ovary: wnl 4. Left Ovary: wnl 5. Bilateral Adnexa: wnl 6. Posterior cul-de-sac: wnl IMPRESSION: 1. Unremarkable pelvic ultrasound O-RADS 2021 [email or web address] [facility], , 11/19/2024 8:18 AM
== END | disposition home or self-care (01) ==
LOC: RADUSWWP 07:08
PROVIDERS: ATTEND Family Medicine
DX: K76.0 Fatty (change of) liver, not elsewhere classified (principal); K59.09 Other constipation; R16.0 Hepatomegaly, not elsewhere classified
CPT/HCPCS: 76700; 76830; 76856

== ENCOUNTER 2024-12-06 07:21 | Emergency (ER) | payer MEDICARE ==
--- NOTE | 2024-12-06 07:52 | ED ---
Eye Problem HPI - General Chief complaint: Eye Problems Stated complaint: R eye issue Time Seen by Provider: 12/06/24 07:38 Source: patient, RN notes reviewed Mode of arrival: ambulatory Limitations: no limitations - History of Present Illness Initial comments: This is a 29-year-old female who presents to the emergency department for swelling to the right eyelid. States that she woke up like this. Denies any issues when she went to bed last night. This is mildly uncomfortable. Denies any problems with her vision or symptoms going into the eyeball itself. Denies any URI symptoms such as coughing or congestion. - Related Data Home Medications Medication Instructions Recorded Confirmed Albuterol Inhaler [Ventolin Hfa 10/30/24 Inhaler] Atorvastatin [Lipitor] 20 mg PO DAILY 10/30/24 10/30/24 Budesonide [Pulmicort Flexhaler] 160 mcg INHALATION BID 10/30/24 10/30/24 Famotidine 20 mg PO DAILY 10/30/24 10/30/24 Losartan Potassium 20 mg PO DAILY 10/30/24 10/30/24 metFORMIN HCL ER [Glucophage XR] 500 mg PO DAILY 10/30/24 10/30/24 Previous Rx's Medication Instructions Recorded HYDROcodone/APAP 5-325MG [[place] 5] 1 each PO Q6HR PRN #12 tab 03/21/24 Ibuprofen [Motrin] 600 mg PO Q8HR PRN #30 tab 03/21/24 Cyclobenzaprine [Flexeril] 10 mg PO TID PRN #15 tab 09/30/24 Lidocaine 4% Patch 1 patch TOPICAL DAILY PRN 7 Days 09/30/24 #7 patch Naproxen Sodium [Naproxen Sodium 500 mg PO DAILY #30 tab 09/30/24 ER] Allergies Allergy/AdvReac Type Severity Reaction Status Date / Time amoxicillin Allergy Unknown Verified 12/06/24 07:37 Childhood morphine Allergy Swelling Verified 12/06/24 07:37 Penicillins Allergy Unknown Verified 12/06/24 07:37 Childhood Review of Systems ROS Statement: Those systems with pertinent positive or pertinent negative responses have been documented in the HPI. ROS Other: All systems not noted in ROS Statement are negative. Past Medical History Past Medical History: Asthma, Diabetes Mellitus, Hyperlipidemia, Hypertension Additional Past Medical History / Comment(s): High Cholestrol. Cortisol issue , (my kidneys and liver not working as good, PTSD, Depression/Anxiety) History of Any Multi-Drug Resistant Organisms: None Reported Past Surgical History: Orthopedic Surgery Additional Past Surgical History / Comment(s): Ankle x 2, Surgery on mouth at age 12 - benign - removed both canine teeth. Past Psychological History: Anxiety, Depression, PTSD Smoking Status: Never smoker Past Alcohol Use History: None Reported Past Drug Use History: None Reported - Past Family History Father Additional Family Medical History / Comment(s): Gallbladder removed, pancreatitis Mother Family Medical History: Diabetes Mellitus, Hypertension Additional Family Medical History / Comment(s): Type 2 diabetic, borderline personality disorder, schizophrenic, fluid in her ankles - going to be checked for sleep apnea. General Exam Limitations: no limitations General appearance: alert, in no apparent distress Head exam: Present: atraumatic, normocephalic, normal inspection Eye exam: Present: PERRL, EOMI, other (Mild swelling to the right upper lid. No erythema. No swelling to the lower lid or underneath the eye. No pain with extraocular movements.). Absent: conjunctival injection Respiratory exam: Present: normal lung sounds bilaterally. Absent: respiratory distress, wheezes, rales, rhonchi, stridor Cardiovascular Exam: Present: regular rate, normal rhythm Neurological exam: Present: alert, oriented X3, CN II-XII intact Psychiatric exam: Present: normal affect, normal mood Skin exam: Present: warm, dry, intact, normal color. Absent: rash Course Vital Signs 12/06/24 12/06/24 07:35 08:14 Temperature 98.4 F 98.2 F Pulse Rate 94 90 Respiratory 20 18 Rate Blood Pressure 113/81 115/76 O2 Sat by Pulse 96 97 Oximetry Medical Decision Making - Medical Decision Making This is a 29-year-old female who presents to the emergency department for right eye pain and swelling. Was pt. sent in by a medical professional or institution? @ -No Did you speak to anyone other than the patient for history? @ -No Did you review nursing and triage notes? @ -Yes, and I agree, it is accurate with regards to the patient's symptoms. Were old charts reviewed? @ -No Differential Diagnosis? @ -Differential Eye Pain: Conjuncitivitis (viral, bacterial, allergic), corneal abrasion, foreign body, iritis, uveitis, keratitis, acute angle closure glaucoma, this is not meant to be an all-inclusive list. EKG interpreted by me (3pts min.)? @ -Not obtained X-rays interpreted by me (1pt min.)? @ -Not obtained CT interpreted by me (1pt min.)? @ -Not obtained U/S interpreted by me (1pt. min.)? @ -Not obtained What testing was considered but not performed? (CT, X-rays, U/S, labs)? Why? @ -None What meds were considered but not given? Why? @ -None Did you discuss the management of the patient with other professionals? @ -No Did you reconcile home meds? @ -No Was smoking cessation discussed for >3mins.? @ -No Was critical care preformed (if so, how long)? @ -No Were there social determinants of health that impacted care today? How? (Homelessness, low income, unemployed, alcoholism, drug addiction, transportation, low edu. Level, literacy, decrease access to med. care, usp, rehab)? @ -No Was there de-escalation of care discussed even if they declined? (Discuss DNR or withdrawal of care, Hospice)? @ -No What co-morbidities impacted this encounter? (DM, HTN, Smoking, COPD, CAD, Cancer, CVA, Hep., AIDS, mental health diagnosis, sleep apnea, morbid obesity)? @ -None Was patient admitted / discharged? @ -Discharged. Physical examination consistent with a blepharitis. She had mild translucent swelling to the right upper lid. There was no erythema or involvement of the eyeball itself. She was sent home with erythromycin ophthalmic ointment for further management. Also advised warm compresses and washing the eye with something like a gentle baby shampoo. Strict return parameters discussed and advised close follow-up with her PCP. Patient discharged home in stable condition. Case discussed with ED attending Dr. Gr. Return precautions reviewed in depth, the patient is instructed to return to the emergency department with any new, worsening, or concerning symptoms. Patient verbalized understanding. Undiagnosed new problem with uncertain prognosis? @ -None Drug Therapy requiring intensive monitoring for toxicity (Heparin, Nitro, Insulin, Cardizem)? @ -None Were any procedures done? @ -None Diagnosis/symptom? @ -Blepharitis of right eye Acute, or Chronic, or Acute on Chronic? @ -Acute Uncomplicated (without systemic symptoms) or Complicated (systemic symptoms)? @ -Uncomplicated Side effects of treatment? @ -None Exacerbation, Progression, or Severe Exacerbation] @ -Not applicable Poses a threat to life or bodily function? @ -No Disposition Clinical Impression: Blepharitis, right eye Disposition: HOME SELF-CARE Instructions (If sedation given, give patient instructions): Blepharitis (ED) Additional Instructions: Return to the emergency department with any new, worsening, or concerning symptoms. Apply the erythromycin ointment to the right eyelid margin every 4-6 hours for 5 to 7 days. Avoid any kind of eye make-up for the meantime. Apply warm compresses for 15 minutes 4 times each day and wash the lid with mild shampoo such as baby shampoo twice daily. Follow up with your primary care provider in 1-2 days. Is patient prescribed a controlled substance at d/c from ED?: No Referrals: Mireya Mckeon MD [Primary Care Provider] - 1-2 days
[2024-12-06] MEDS: ERYTHROMYCIN 5 MG/GM OPHTH OINT 3.5 GM TUBE RIGHT EYE STA (08:08)
[2024-12-06 10:15] VITALS: BP 115/76; PULSE 90; RESP 18; TEMP 98.2
== END 2024-12-06 08:15 | disposition home or self-care (01) ==
LOC: EC 07:21
DX: H01.003 Unspecified blepharitis right eye, unspecified eyelid (principal); Z88.0 Allergy status to penicillin; Z88.5 Allergy status to narcotic agent
CPT/HCPCS: 99283

== ENCOUNTER 2024-12-22 19:00 | Outpatient (CLI) | payer OTHER ==
[2024-12-23 19:35] LABS: Urine Alcohol Negative (Negative); Urine Barbiturate Negative (Negative)
--- NOTE | 2024-12-24 10:32 | P.PCN ---
Description of Procedure: POLYSOMNOGRAPHY AND MSLT REPORT PROCEDURE(S)/DATE(S): Polysomnography 12/22/2024, multiple sleep latency test 12/23/2024 [] CLINICAL: Patient has been seen in the sleep center for evaluation of obstructive sleep apnea-hypopnea syndrome. Please see my consultation. Sleep study has been done for evaluation of patient breathing during the sleep. PROCEDURE: The standard montage for clinical polysomnography included the electroencephalogram, the electrooculogram, the mentalis surface e lectromyography and Lead II cardiography. The respiratory battery consisted of measurements of nasal/buccal air flow, pressure transducer measurements from nose, thoracic and/or abdominal effort and intercostal surface electromyography. Video monitoring has been done to check for any parasomnia events. Nocturnal oxyhemoglobin saturations were obtained by finger oximetry. Step-simpson titration with positive airway pressure was utilized to control the respiratory events, if necessary. RESULTS: During the diagnostic sleep study sleep efficiency was slightly decreased to 85.5%. Latency to sleep onset was prolonged to 44.0 min. Sleep architecture showed stage NI was show 2.3%, Delta sleep was in high range 27.7%, REM sleep was above normal 35.4%. Respiratory channel showed 1 obstructive apneas, 0 mixed apneas, 0 central apneas, 0 hypopneas with lowest oxygen level 91%. Total apnea hypopnea index was 0.2. Heart rate was in the range between 71 and 83, average 76. EMG showed 0 periodic limb movements per hour. Multiple sleep latency test have been done on the following day, consisted from 5 naps. Patient fell asleep on all naps. Mean sleep latency was pathologically short 3.1 minutes. No sleep onset REM periods have been documented. IMPRESSIONS: 1. No significant respiratory abnormalities given documented during the sleep study, normal oxygenation during sleep. 2. No significant periodic limb movements have been documented. 3. Multiple sleep latency test confirmed pathological sleepiness, which was only 3.1 minutes, no sleep onset REM periods have been documented. Differential diagnosis include narcolepsy and idiopathic hypersomnia Please see other impressions from consultation PLAN: 1. I will see patient for follow-up visit to explain results of the tests and recommendations. 2. Sleep hygiene with regular time in bed for at least 7-1/2 hours. 3. Daytime naps were permitted. 4. No driving if feeling sleepiness. Thank you very much for allowing me to participate in the management of your patient. Sincerely, Garett Patricio MD, PhD, FAASM. Diplomat of [place] [employer], Sleep Medicine Board by [place] [employer] [facility] [place] cc: Mireya Mckeon MD
== END 2024-12-23 16:50 | disposition home or self-care (01) ==
LOC: 3 N SLEEP 19:00
PROVIDERS: ATTEND Internal Medicine
DX: G47.33 Obstructive sleep apnea (adult) (pediatric) (principal); Z88.5 Allergy status to narcotic agent; Z88.0 Allergy status to penicillin
CPT/HCPCS: 80306; 95805; 95810

== ENCOUNTER → 2025-01-02 | Outpatient (CLI) | payer OTHER ==
--- NOTE | 2025-01-02 16:37 | P.PROGSL ---
Subjective DATE: 01/02/2025 FOLLOW UP VISIT. Patient returned to sleep center for follow-up visit to discuss results of sleep study and following plan. I discussed results of sleep study with patient and family in details. Diagnostic polysomnogram did not show any abnormalities of respiration. Multiple sleep latency test on the following day showed pathol ogical sleepiness with mean sleep latency 3.1 minutes. No sleep onset REM periods have been documented. Patient continued to feel sleepiness during the day. Thornton sleepiness scale today is an extremely high range of 20. MEDICATIONS:1. Metformin 500 mg 2. Lipitor 20 mg 3. Famotidine 20 mg once a day 4. Losartan 25 mg once a day 5. Ventolin During physical exam: GENERAL: A pleasant patient without any distress. VITAL SIGNS: BP 137/93, HR 80, RR 16, weight 278, temperature 98.0, oxygen saturation at room air 97. HEENT: PERRLA, EOMI. NECK: Supple. No JVD. LUNGS: Clear to percussion and to auscultation. Good air exchange. No wheezing or rhonchi. HEART: S1, S2 regular. ABDOMEN: Soft and nontender. EXTREMITIES: No clubbing or cyanosis. 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 No focal deficit. Impressions: 1. No significant respiratory abnormalities given documented during polysomnogram 2. Multiple sleep latency test confirmed pathological sleepiness with mean sleep latency 3.1 minutes, no sleep onset REM periods have been documented. Differential diagnosis include narcolepsy type II and idiopathic hypersomnia. 3. Obesity. 4. Hypertension. 5. Asthma. 6. Diabetes mellitus. 7. Acid reflux. 8. Status post fracture of left fibula and surgical treatment. Plan: 1. Patient will start treatment with Adderall 5 mg 1 tablet first thing in the morning and 1 tablet around 1 PM 2. Sleep hygiene with regular time in bed for at least 8 hours. 3. Daytime naps permitted 4. Precautions related to driving. No driving if feel any sleepiness. Patient is aware about civil and criminal liability for unsafe driving, promised to follow recommendations. 5. Follow up visit in 4-6 weeks or earlier if patient has any problems. Thank you very much for allowing me to participate in the management of your patient. Garett Patricio MD, PhD, FAASM. Diplomat of [employer] [employer], Sleep Medicine Board by [employer] [facility] [place] cc: Mireya Mckeon MD Objective Home Medications: Home Medications Medication Instructions Recorded Confirmed Type HYDROcodone/APAP 5-325MG [[place] 5] 1 each PO Q6HR PRN #12 tab 03/21/24 Rx Ibuprofen [Motrin] 600 mg PO Q8HR PRN #30 tab 03/21/24 Rx Cyclobenzaprine [Flexeril] 10 mg PO TID PRN #15 tab 09/30/24 Rx Lidocaine 4% Patch 1 patch TOPICAL DAILY PRN 7 Days 09/30/24 Rx #7 patch Naproxen Sodium [Naproxen Sodium 500 mg PO DAILY #30 tab 09/30/24 Rx ER] Albuterol Inhaler [Ventolin Hfa 10/30/24 History Inhaler] Atorvastatin [Lipitor] 20 mg PO DAILY 10/30/24 10/30/24 History Budesonide [Pulmicort Flexhaler] 160 mcg INHALATION BID 10/30/24 10/30/24 History Famotidine 20 mg PO DAILY 10/30/24 10/30/24 History Losartan Potassium 20 mg PO DAILY 10/30/24 10/30/24 History metFORMIN HCL ER [Glucophage XR] 500 mg PO DAILY 10/30/24 10/30/24 History
== END | disposition home or self-care (01) ==
LOC: 3 N SLEEP 15:12
PROVIDERS: ATTEND Internal Medicine
DX: G47.10 Hypersomnia, unspecified (principal); E66.9 Obesity, unspecified; I10 Essential (primary) hypertension; J45.909 Unspecified asthma, uncomplicated; G47.419 Narcolepsy without cataplexy; E11.9 Type 2 diabetes mellitus without complications; K21.9 Gastro-esophageal reflux disease without esophagitis; Z98.890 Other specified postprocedural states; Z88.0 Allergy status to penicillin; Z88.1 Allergy status to other antibiotic agents
CPT/HCPCS: 99212